=== PATIENT | male | born 1935 | race Caucasian/White ===

== ENCOUNTER 2016-10-03 00:16 | Emergency (ER) | payer OTHER ==
--- NOTE | 2016-10-03 00:20 | PDOC ---
History of Present Illness - General Chief Complaint: Respiratory Stated Complaint: FEVER,COUGH, SORE THROAT Time Seen by Provider: 10/03/16 00:20 History Source: Patient Exam Limitations: No Limitations, Other (poor historian) - History of Present Illness Initial Comments: 81 yo M history HTN, IBS presents with productive cough, congestion for the past few days. He was seen by his PMD who prescribed amoxicillin. He is on the second day of antibiotics. He states that the congestion is improving, but that now the cough has become painful- he has pain to the lower portion of his ribcage when he has a bout of coughing. He has had difficulty expectorating with his cough. +Sore throat. No SOB. Past History - Past Medical History Allergies/Adverse Reactions: Allergies Allergy/AdvReac Type Severity Reaction Status Date / Time No Known Allergies Allergy Verified 10/03/16 00:25 Home Medications: Ambulatory Orders Aspirin Coated [Ecotrin -] 81 mg PO DAILY 08/24/13 Atorvastatin Ca [Lipitor -] 20 mg PO HS 08/24/13 Bupropion HCl [Wellbutrin -] 100 mg PO DAILY 08/24/13 Cholecalciferol (Vitamin D3) [Vitamin D] 1,000 unit PO DAILY 08/24/13 Clonazepam [Klonopin] 0.5 mg PO HS 08/24/13 Ibuprofen [Advil -] 400 mg PO BID 08/24/13 Methylphenidate HCl [Ritalin] 5 mg PO DAILY 08/24/13 Propranolol HCl 10 mg PO DAILY 08/24/13 Sulfasalazine [Azulfidine] 500 mg PO DAILY 08/24/13 Triamterene/Hydrochlorothiazid [Triamterene-Hctz 37.5-25 mg Tb] 1 each PO DAILY 08/24/13 Zolpidem Tartrate [Ambien] 10 mg PO HS 08/24/13 Cardiac Disorders: Yes HTN: Yes Hypercholesterolemia: Yes - Surgical History Cardiac Surgery: Yes (AORTIC VALVE REPLACEMENT) - Psycho/Social/Smoking Cessation Hx Anxiety: No Suicidal Ideation: No Smoking History: Never smoked Number of Cigarettes Smoked Daily: 0 Hx Alcohol Use: No Substance Use Type: None Review of Systems - Review of Systems Able to Perform ROS?: Yes Comments:: GENERAL/CONSTITUTIONAL: No fever or chills. No weakness. HEAD, EYES, EARS, NOSE AND THROAT: No change in vision. No ear pain or discharge. +Sore throat. CARDIOVASCULAR: +Chest pain at the lower rib margin. No shortness of breath. RESPIRATORY: +Cough. No wheezing or hemoptysis. GASTROINTESTINAL: No nausea, vomiting, diarrhea or constipation. GENITOURINARY: No dysuria, frequency, or change in urination. MUSCULOSKELETAL: No joint or muscle swelling or pain. No neck or back pain. SKIN: No rash NEUROLOGIC: No headache, vertigo, loss of consciousness, or change in strength/ sensation. ENDOCRINE: No increased thirst. No abnormal weight change. HEMATOLOGIC/LYMPHATIC: No anemia, easy bleeding, or history of blood clots. ALLERGIC/IMMUNOLOGIC: No hives or skin allergy. *Physical Exam - Physical Exam Comments: GENERAL: Awake, alert, and fully oriented, in no acute distress HEAD: No signs of trauma EYES: PERRLA, EOMI, sclera anicteric, conjunctiva clear ENT: Auricles normal inspection, hearing grossly normal, nares patent, oropharynx clear without exudates. Moist mucosa NECK: Normal ROM, supple, no lymphadenopathy, JVD, or masses LUNGS: Intermittent bouts of hacking, loose cough. Dec air entry B/L, scattered exp wheezes B/L. HEART: Regular rate and rhythm, normal S1 and S2, no murmurs, rubs or gallops ABDOMEN: Soft, nontender, normoactive bowel sounds. No guarding, no rebound. No masses EXTREMITIES: Normal range of motion, no edema. No clubbing or cyanosis. No cords, erythema, or tenderness NEUROLOGICAL: Cranial nerves II through XII grossly intact. Normal speech, normal gait SKIN: Warm, Dry, normal turgor, no rashes or lesions noted. Medical Decision Making - Medical Decision Making 10/03/16 00:41 DDx includes pna vs bronchitis. Will treat symptomatically with robitussin AC as well as duonebs. CXR to r/o pna. Likely DC home. *DC/Admit/Observation/Transfer Diagnosis at time of Disposition: Bronchitis - Discharge Dispostion Disposition: HOME Condition at time of disposition: Stable Admit: No - Patient Instructions Printed Discharge Instructions: DI for Acute Bronchitis
[2016-10-03 00:31] VITALS: BP 152/93; PULSE 72; TEMP 99; BMI 24.3
[2016-10-03] MEDS ORDERED: guaiFENesin/CODEINE 10 ML UNIT-DOSE CUPS PO ONE (00:37)
[2016-10-03] MEDS ORDERED: ALBUTEROL SO4 2.5/IPRATROPIUM 0.5 INH SOL 3 ML VIAL.NEB. NEB ONE ×3 (00:40→01:02)
[2016-10-03] MEDS ORDERED: guaiFENesin/CODEINE 10 ML UNIT-DOSE CUPS ONE (00:41)
[2016-10-03] MEDS: ALBUTEROL SO4 2.5/IPRATROPIUM 0.5 INH SOL 3 ML VIAL.NEB. NEB SCH ×2 (01:06→01:18)
[2016-10-03] MEDS ORDERED: PRESCRIPTION PAD 1 EACH EACH NR ONE (01:25)
== END 2016-10-03 01:27 | disposition home or self-care (01) ==
LOC: FER 00:16
PROC: 3E0F7GC Introduction of Other Therapeutic Substance into Respiratory Tract, Via Natural or Artificial Opening (ICD-10-PCS; principal; 2016-10-03)
DX: J40 Bronchitis, not specified as acute or chronic (principal); I10 Essential (primary) hypertension; E78.00 Pure hypercholesterolemia, unspecified; Z95.2 Presence of prosthetic heart valve
CPT/HCPCS: 71020-TC; 94640; 99281-25

== ENCOUNTER 2020-06-06 19:30 | Emergency (ER) | payer OTHER ==
[2020-06-06] MEDS ORDERED: AMOX TR/POT CLAV 500MG/125MG TABLETS (FP) PO ONE (19:50)
[2020-06-06 19:53] VITALS: PULSE 60; TEMP 98; BMI 26.3
[2020-06-06] MEDS ORDERED: AMOX TR/POT CLAV 500MG/125MG TABLETS (FP) ONE (19:53)
[2020-06-06] MEDS ORDERED: cloNIDine HCL 0.1 MG TABLET PO ONE (20:03)
[2020-06-06] MEDS ORDERED: cloNIDine HCL 0.1 MG TABLET ONE (20:04)
[2020-06-06 20:31] VITALS: BP 179/95
== END 2020-06-06 20:35 | disposition home or self-care (01) ==
LOC: FER 19:30
DX: R04.0 Epistaxis (principal)
CPT/HCPCS: 99283-25; J0735